=== PATIENT | female | born 1995 | race Caucasian/White ===

== ENCOUNTER 2022-05-28 05:23 | Outpatient (CLI) | payer OTHER ==
[~2022-05-28] VITALS: Ht 162.6 cm; Wt 89.1 kg
[2022-05-28] VITALS (8 sets, daily range): BP systolic 110–130; BP diastolic 56–80; PULSE 76–100; TEMP 98.6
--- NOTE | 2022-05-28 05:25 | NUR ---
Ambulatory to unit for assessment, accompanied by spouse. Pt reports "I lost my mucous plug @ 4:45 and I feel like I need to push" Oriented to room, monitor plan of care. Pt with known gastroschisis with plan to be induced 06/05/2022 at [facility] [place]. SVE 1cm/soft/-2 no fluid, no vaginal bleeding, discharge on exam glove 'samayoa'. Pt reports "I might be having some contractions. I'm not sure." Potential plans of care briefly reviewed with pt and spouse.
[2022-05-28] MEDS ORDERED: ZOLOFT 50MG50 MG PO (06:25)
[2022-05-28] MEDS ORDERED: PRENATAL TABLET PO (06:25)
--- NOTE | 2022-05-28 07:20 | NUR ---
0640- BETAMETHASONE GIVEN BY RN. 0659- CALLED BY . ROM+ RESULT HAS COME BACK. PATIENT IS RUPTURED. 0710- PENICILLIN G STARTED AT THIS TIME. 711- AT BEDSIDE TO EVALUATE PATIENT AND UPDATE ON PLAN OF CARE. SVE AT THIS TIME PER 2/THICK. GET BACKROUND FROM PATIENT, PATIENT STATES "I WOKE UP AND I WAS COMPLETELY SOAKED. I WENT TO THE BATHROOM AND MY MUCUS PLUG WAS IN THE TOILET." THIS WAS NOT INCLUDED IN REPORT THIS RN OR RECIEVED THIS MORNING. INFORMED PATIENT SHE WOULD BE GETTING TRANSFERRED AND PATIENT VERBALIZED UNDERSTANDING. FHR DIFFICULT TO TRACE AT THIS TIME, THIS RN REMAINS AT BEDSIDE READJUSTING EFM.
--- NOTE | 2022-05-28 10:05 | NUR ---
PATIENT UP TO BATHROOM. TOLERATES WELL. DENIES NEEDS. WAITING ON [employer] [facility].
--- NOTE | 2022-05-28 10:07 | NUR ---
0909 [facility] HERE NOW FOR TRANSPORT. ASSESSMENT COMPLETED AND REPORT GIVEN TO ELISSA GALAVIZ TO ASSUME CARE. PATIENT DENIES NEEDS. NO QUESTIONS BY FLIGHT CREW OR PATIENT. 1010 PATIENT DISMISSED VIA CART WITH FLIGHT CREW.
== END 2022-05-28 10:13 | disposition home or self-care (01) ==
LOC: LDRO 05:23 → LDR 05:50 → LDRO 10:13
DX: Z34.93 Encounter for supervision of normal pregnancy, unspecified, third trimester (principal); Z3A.35 35 weeks gestation of pregnancy
CPT/HCPCS: OP; J0702; J2540; J7120